=== PATIENT | female | born 1990 | race Caucasian/White ===

== ENCOUNTER 2016-11-01 19:19 | Emergency (ER) | payer MEDICAID, OTHER ==
[2016-11-01] MEDS ORDERED: Metoclopramide IV* 5 MG/ML 2 ML VIAL IV ONE (21:56)
[2016-11-01] MEDS ORDERED: NS 0.9% 1000 ML* 1,000 ML IV ONE (21:56)
[2016-11-01] MEDS ORDERED: diPHENhydraMINE IV* 50 MG/ML 1 ml VIAL (BENADRYL) IV ONE (21:57)
[2016-11-01] MEDS ORDERED: HYDROmorphone INJ* 1 MG/ML CARPUJECT SYRINGE IV ONE (23:32)
[2016-11-02 00:01] VITALS: BP 90/51
--- NOTE | 2016-11-02 11:05 | ED ---
Michelle Dennis Michael, scribed for James Altman MD on 11/01/16 at 2148 . Headache - HPI Summary HPI Summary: 26 y/o female comes to the ED presenting with constant COLE that started 4 days ago. The pt reports that the COLE is throbbing, and it has gradually worsened. The COLE is aggravated with standing up and bright lights. She states Tylenol did not alleviate the pain. The pt also c/o n/v and photophobia for the past 4 days. Her gestational age is 7 weeks, and she is G1-P1-A0. The PMHx is significant for a cholecystectomy. - History Of Current Complaint Chief Complaint: EDHeadache Stated Complaint: HEADACHES/7WKS PREG Time Seen by Provider: 11/01/16 21:42 Hx Obtained From: Patient, Medical Records Hx Last Menstrual Period: 05/11/16 Onset/Duration: Gradual Onset, Started days ago, Still Present Initially Headache Was: Moderate Currently Pain Is: Moderate Timing: Constant Character: Throbbing Location of Headache: Occipital Aggravating Factor: Position Change - standing up, Bright Lights Allevating Factors: Nothing Associated Signs And Symptoms: Nausea, Vomiting, Other (Noted In Comments) - COLE - Allergies/Home Medications Allergies/Adverse Reactions: Allergies Allergy/AdvReac Type Severity Reaction Status Date / Time Amoxicillin Allergy Hives Verified 07/27/16 14:04 PMH/Surg Hx/FS Hx/Imm Hx Endocrine/Hematology History: Denies: Hx Diabetes, Hx Thyroid Disease Cardiovascular History: Denies: Hx Hypertension Respiratory History: Denies: Hx Asthma, Hx Chronic Obstructive Pulmonary Disease (COPD) GI History: Denies: Hx Ulcer - Surgical History Surgery Procedure, Year, and Place: cholecystectomy - 2009 Infectious Disease History: No Infectious Disease History: Denies: Hx Hepatitis, Hx Human Immunodeficiency Virus (HIV), History Other Infectious Disease, Traveled Outside the [place] in Last 30 Days - Family History Known Family History: Positive: None Family History: pt denies a significant FHx - Social History Occupation: Unemployed Lives: Alone Alcohol Use: None Substance Use Type: Reports: None Smoking Status (MU): Current Every Day Smoker Type: Cigarettes Amount Used/How Often: 1 ppd Length of Time of Smoking/Using Tobacco: began at age 12 Have You Smoked in the Last Year: Yes Review of Systems Negative: Fever Positive: Vomiting, Nausea Positive: Headache All Other Systems Reviewed And Are Negative: Yes Physical Exam Triage Information Reviewed: Yes Vital Signs On Initial Exam: Initial Vitals Temp Pulse Resp BP Pulse Ox 97.8 F 96 18 107/67 100 11/01/16 19:22 11/01/16 19:22 11/01/16 19:22 11/01/16 19:22 11/01/16 19:22 Vital Signs Reviewed: Yes Appearance: Positive: Well-Appearing, No Pain Distress Skin: Positive: Warm, Skin Color Reflects Adequate Perfusion, Dry Head/Face: Positive: Normal Head/Face Inspection Eyes: Positive: Normal ENT: Positive: Normal ENT inspection Neck: Positive: Supple, Nontender Respiratory/Lung Sounds: Positive: Clear to Auscultation, Breath Sounds Present Cardiovascular: Positive: RRR Abdomen Description: Positive: Nontender, Soft Bowel Sounds: Positive: Present Musculoskeletal: Positive: Normal Neurological: Positive: Normal Psychiatric: Positive: Normal, Affect/Mood Appropriate Diagnostics - Vital Signs Vital Signs Temp Pulse Resp BP Pulse Ox 11/01/16 19:22 97.8 F 96 18 107/67 100 - Laboratory Lab Statement: Any lab studies that have been ordered have been reviewed, and results considered in the medical decision making process. Headache Course/Dx - Course Course Of Treatment: Gia Meyers presented with the gradual onset 4 days ago of a constant, throbbing occipital COLE accompanied by photophobia and nausea. Two days prior she learned that she is for the second time. She has an 8 year old son. She had no meningeal or neurological signs and her Cole improved with an abreviated COLE cocktail (no toradol) of benadryl, reglan and IV NS. - Diagnoses Provider Diagnoses: Migraine Discharge - Discharge Plan Condition: Stable Disposition: HOME Patient Education Materials: Migraine Headache (ED) [place] [facility] [place] Additional Instructions: You will [place] [facility] within the next 2-3 days. The documentation as recorded by the Michelle griffith Michael accurately reflects the service I personally performed and the decisions made by me, James Altman MD.
== END 2016-11-02 00:13 | disposition home or self-care (01) ==
LOC: ED 19:19
DX: O26.891 Other specified pregnancy related conditions, first trimester (principal); G43.909 Migraine, unspecified, not intractable, without status migrainosus; Z3A.01 Less than 8 weeks gestation of pregnancy; O99.331 Smoking (tobacco) complicating pregnancy, first trimester; Z88.0 Allergy status to penicillin
CPT/HCPCS: 99284; J1200; J2765

== ENCOUNTER → 2017-06-15 07:42 | Emergency (ER) | payer OTHER ==
[2017-06-15 08:03] VITALS: BP 125/76
--- NOTE | 2017-06-15 08:27 | ED ---
Chino Dennis Angela, scribed for Ethan Aguayo MD on 06/15/17 at 0759 . - HPI Summary HPI Summary: This pt is a 27 y/o female, currently 40 weeks , presenting to [facility] c/o constant abd pain since 5:00 AM today. Pt reports her pain is sharp and located on the right side. She notes on her previous she was 1 week over when she gave , and currently on this she is 5 days over. Pt denies vaginal bleeding or spotting, fever, chills, back pain. She was told she was 4 cm dilated yesterday by the die reamer. - History of Current Complaint Chief Complaint: EDOBProblems Stated Complaint: 40+WEEKS PREG/RT ABD PAIN Hx Obtained From: Patient Onset/Duration: Started Hours Ago Timing: Constant Pain Intensity: 9 - out of 10 in severity Location of Pain: Right Side Aggravating Factors: Nothing Alleviating Factors: Nothing Associated Signs and Symptoms: Negative: Back Pain, Fever, Vaginal Bleeding or Discharge - Assessment Hx Now: Yes Hx Hysterectomy: No - Allergies/Home Medications Allergies/Adverse Reactions: Allergies Allergy/AdvReac Type Severity Reaction Status Date / Time Amoxicillin Allergy Hives Verified 06/15/17 07:44 PMH/Surg Hx/FS Hx/Imm Hx Endocrine/Hematology History: Denies: Hx Diabetes, Hx Thyroid Disease Cardiovascular History: Denies: Hx Hypertension Respiratory History: Denies: Hx Asthma, Hx Chronic Obstructive Pulmonary Disease (COPD) GI History: Denies: Hx Ulcer - Surgical History Surgery Procedure, Year, and Place: cholecystectomy - 2010 Infectious Disease History: Denies: Hx Hepatitis, Hx Human Immunodeficiency Virus (HIV), History Other Infectious Disease, Traveled Outside the [place] in Last 30 Days - Family History Known Family History: Positive: None Family History: pt denies a significant FHx - Social History Alcohol Use: None Substance Use Type: Reports: None Smoking Status (MU): Current Every Day Smoker Type: Cigarettes Amount Used/How Often: 1 ppd Length of Time of Smoking/Using Tobacco: began at age 12 Have You Smoked in the Last Year: Yes Review of Systems Negative: Fever, Chills Eyes: Negative ENT: Negative Negative: Epistaxis, Sore Throat Negative: Chest Pain Negative: Shortness Of Breath Positive: Abdominal Pain Genitourinary: Negative Negative: hematuria, other - vaginal bleeding or spotting Negative: Other - back pain Negative: Rash, Bruising Negative: Headache, Weakness Negative: Anxious All Other Systems Reviewed And Are Negative: Yes Physical Exam - Summary Physical Exam Summary: The patient is well-nourished in no acute distress. The skin is warm and dry and skin color reflects adequate perfusion. HEENT: The head is normocephalic and atraumatic. The pupils are equal and reactive. The conjunctivae are clear and anicteric. The teeth are in poor repair. Neck is supple with full range of motion and non-tender. There are no carotid bruits. Respiratory: Chest is non-tender. Lungs are clear to auscultation and breath sounds are symmetrical and equal. Cardiovascular: Hear is regular rate and rhythm. There is no murmur or rub auscultated. There is no peripheral edema and pulses are symmetrical and equal. Abdomen: The pt is gravid. The abdomen is soft and mild tenderness on the right side. Musculoskeletal: There is no back pain noted. Extremities are non-tender with full range of motion. There is good capillary refill. There is no peripheral edema or calf tenderness elicited. There are good distal pulses. Neurological: Patient is alert and oriented to person, place and time. The patient has symmetrical motor strength in all four extremities. Psychiatric: The patient has an appropriate affect and does not exhibit any anxiety or depression. - Physical Exam Triage Information Reviewed: Yes Vital Signs Reviewed: Yes Diagnostics - Vital Signs Vital Signs Temp Pulse Resp BP Pulse Ox 06/15/17 07:44 97.8 F 118 16 122/71 99 - Laboratory Lab Statement: Any lab studies that have been ordered have been reviewed, and results considered in the medical decision making process. Course/Dx - Course Course Of Treatment: This pt is a 27 y/o female, currently 40 weeks , [place] [facility] [place]/o constant abd pain since 5:00 AM today. Pt reports her pain is sharp and located on the right side. She notes on her previous she was 1 week over when she gave , and currently on this she is 5 days over. Pt denies vaginal bleeding or spotting, fever , chills, back pain. She was told she was 4 cm dilated yesterday by the die reamer. We will discharge the pt and send to the [facility] [place] [facility]. Santo (from [facility]) is currently in the OR, we will send the pt there. - Differential Diagnosis/HQI/PQRI: Late - Diagnoses Provider Diagnoses: , Abdominal pain Discharge - Discharge Plan Condition: Stable Disposition: HOME Referrals: No Primary Care Phys,NOPCP [Primary Care Provider] - Additional Instructions: Please go to Maternal Health Unit to be further evaluated. The documentation as recorded by the Chino griffith Angela accurately reflects the service I personally performed and the decisions made by , Ethan Aguayo MD.
== END | disposition home or self-care (01) ==
LOC: ED 07:42
DX: R10.9 Unspecified abdominal pain (principal); Z34.93 Encounter for supervision of normal pregnancy, unspecified, third trimester; F17.210 Nicotine dependence, cigarettes, uncomplicated
CPT/HCPCS: 99282

== ENCOUNTER 2017-06-17 07:48 | Inpatient (IN) | payer OTHER ==
[~2017-06-17 07:48] MED LIST: Oxytocin in LR* 20 UNITS/1,000 ML BAG IVPB SCH
[2017-06-17] MEDS ORDERED: Oxytocin in LR* 20 UNITS/1,000 ML BAG IVPB ONE (07:59)
[2017-06-17] MEDS ORDERED: Buffered Lidocaine 0.9% SYRIN* 5 ML/SYR SYRINGE ONE (08:01)
[2017-06-17 08:30] LABS: Hematocrit 32 % (35-47); Hemoglobin 10.5 g/dl (12.0-16.0); Mean Corpuscular HGB Conc 33 g/dl (31-36); Mean Corpuscular Hemoglobin 29 pg (27-31); Mean Corpuscular Volume 88 fL (80-97); Mean Platelet Volume 8 um3 (7.4-10.4); Red Blood Count 3.58 10^6/ul (4.0-5.4); Red Cell Distribution Width 16 % (10.5-15); White Blood Count 20.6 10^3/ul (3.5-10.8)
[2017-06-17 08:31] LABS: Add Diff/Slide Review? Slide Review Added; Comments Flag Yes
[2017-06-17] MEDS ORDERED: fentaNYL* 50 MCG/ML 2 ML VIAL (100 MCG VIAL) ONE (10:02)
[2017-06-17] MEDS ORDERED: OBEPIDURAL* 250 ML ONE (10:02)
[2017-06-17] MEDS ORDERED: Sodium Citrate/Citric Acid* 15 ML UDC PO PRN (10:42)
[2017-06-17] MEDS ORDERED: Famotidine TAB* 20 MG PO PRN (10:42)
[2017-06-17] MEDS ORDERED: Phenylephrine IV* 40 MCG/ML 10 ML SYRINGE IV PUSH PRN ×2 (10:42)
[2017-06-17] MEDS ORDERED: OBEPIDURAL* 250 ML EPIDURAL SCH (11:00)
[2017-06-17] MEDS ORDERED: RHO D Immune Globulin (HUMAN)* 300 MCG = 1,500 I.U. INJ IM ONE (16:51)
[2017-06-17] MEDS ORDERED: Glycerin ADULT SUPP PR PRN (16:51)
[2017-06-17] MEDS ORDERED: Acetaminophen TAB* 325 MG PO PRN (16:51)
[2017-06-17] MEDS ORDERED: Dibucaine 1% 28.35 GM TUBE PR PRN (16:51)
[2017-06-17] MEDS ORDERED: Measles, Mumps,Rubella VACC* 0.5 ML/VIAL SUBCUT ONE (16:51)
[2017-06-17] MEDS ORDERED: Witch Hazel PAD* JAR TOPICAL PRN (16:51)
[2017-06-17] MEDS ORDERED: Oxytocin in LR* 20 UNITS/1,000 ML BAG IVPB SCH (16:53)
[2017-06-17] MEDS: Ibuprofen TAB* 600 MG PO PRN (17:17)
[2017-06-17] MEDS: Nicotine PATCH 7 MG/24 HR* PATCH TRANSDERM SCH (17:37)
[2017-06-17] MEDS: Docusate CAP* 100 MG PO SCH (20:12)
[2017-06-17] MEDS: Nicotine Patch Removal NOTE PATCH OFF SCH (21:55)
[2017-06-18] MEDS: Ibuprofen TAB* 600 MG PO PRN ×2 (03:59→19:45)
[2017-06-18] MEDS: Nicotine PATCH 7 MG/24 HR* PATCH TRANSDERM SCH (08:12)
[2017-06-18 08:37] LABS: Hematocrit 27 % (35-47); Hemoglobin 9.1 g/dl (12.0-16.0); Mean Corpuscular HGB Conc 33 g/dl (31-36); Mean Corpuscular Hemoglobin 30 pg (27-31); Mean Corpuscular Volume 89 fL (80-97); Mean Platelet Volume 8 um3 (7.4-10.4); Red Blood Count 3.05 10^6/ul (4.0-5.4); Red Cell Distribution Width 16 % (10.5-15); White Blood Count 17.9 10^3/ul (3.5-10.8)
[2017-06-18] MEDS: Docusate CAP* 100 MG PO SCH ×3 (09:02→19:45)
[2017-06-18] MEDS: Ferrous Gluconate TAB* 324 MG TAB PO SCH ×2 (09:49→19:45)
[2017-06-18] MEDS: Nicotine Patch Removal NOTE PATCH OFF SCH (20:43)
[2017-06-18] MEDS ORDERED: Famotidine TAB* 20 MG PO PRN (23:26)
[2017-06-18] MEDS ORDERED: Sodium Citrate/Citric Acid* 15 ML UDC PO PRN (23:26)
[2017-06-18] MEDS ORDERED: Phenylephrine IV* 40 MCG/ML 10 ML SYRINGE IV PUSH PRN ×2 (23:26)
[2017-06-18] MEDS ORDERED: EPHEDrine (Pressors)* 50 MG/ML VIAL IV PUSH PRN (23:26)
[2017-06-18] MEDS ORDERED: OBEPIDURAL* 250 ML EPIDURAL SCH (23:45)
[2017-06-19] MEDS: Ibuprofen TAB* 600 MG PO PRN (08:25)
[2017-06-19] MEDS: Docusate CAP* 100 MG PO SCH (08:25)
[2017-06-19] MEDS: Nicotine PATCH 7 MG/24 HR* PATCH TRANSDERM SCH (08:26)
[2017-06-19] MEDS: Ferrous Gluconate TAB* 324 MG TAB PO SCH (08:30)
[2017-06-19 09:48] VITALS: BP 94/47
== END 2017-06-19 10:28 | disposition home or self-care (01) | DRG 560 ==
LOC: MCHOBOUT 07:48 → MCHOB 08:21
PROVIDERS: ADMIT Midwife; ATTEND Midwife
PROC: 10E0XZZ Delivery of Products of Conception, External Approach (ICD-10-PCS; principal; 2017-06-17)
PROC: 3E033VJ Introduction of Other Hormone into Peripheral Vein, Percutaneous Approach (ICD-10-PCS; 2017-06-17)
PROC: 10907ZC Drainage of Amniotic Fluid, Therapeutic from Products of Conception, Via Natural or Artificial Opening (ICD-10-PCS; 2017-06-17)
PROC: 0HQ9XZZ Repair Perineum Skin, External Approach (ICD-10-PCS; 2017-06-17)
DX: O48.0 Post-term pregnancy (principal); D64.9 Anemia, unspecified; O70.0 First degree perineal laceration during delivery; O99.334 Smoking (tobacco) complicating childbirth; F17.210 Nicotine dependence, cigarettes, uncomplicated; O90.81 Anemia of the puerperium; Z3A.41 41 weeks gestation of pregnancy; Z37.0 Single live birth
CPT/HCPCS: 36415; 85025; 85027; 85461; 86850; 86900; 86901; 90707; A9270-GY; J2790; J3010

== ENCOUNTER 2022-03-30 11:35 | Inpatient (IN) ==
[2022-03-30] MEDS ORDERED: Nicotine PATCH 14 MG/24 HR PATCH TRANSDERM SCH (13:00)
[2022-03-30] MEDS ORDERED: Oxytocin in LR 20 UNITS/1,000 ML BAG IVPB SCH (13:00)
[2022-03-30] MEDS ORDERED: Lactated Ringers 1000 ml BAG 1,000 ML IV SCH ×3 (13:00→20:00)
[2022-03-30 13:24] LABS: ABS Eosinophils 0.1 10^3/ul (0-0.6); ABS Lymphocytes 2.3 10^3/ul (1.0-4.8); ABS Monocytes 0.5 10^3/ul (0-0.8); Eosinophil % 0.8 %; Hematocrit 31 % (35-47); Hemoglobin 10.2 g/dL (12.0-16.0); Lymphocyte % 17.9 %; Mean Corpuscular HGB Conc 33 g/dL (31-36); Mean Corpuscular Hemoglobin 30 pg (27-31); Mean Corpuscular Volume 89 fL (80-97); Mean Platelet Volume 7.5 fL (7.4-10.4); Nucleated Red Blood Cells % 0.1; Platelet Count 213 10^3/uL (150-450); Red Blood Count 3.45 10^6 /uL (3.70-4.87); Red Cell Distribution Width 18 % (10-15)
[2022-03-30 13:53] LABS: Urine Benzodiazepine Screen None Detected (None Detect); Urine Cannabinoids Screen Presumptive Positive (None Detect); Urine Opiates Screen None Detected (None Detect)
[2022-03-30] MEDS ORDERED: fentaNYL 100 mcg/2 ml 50 MCG/ML VIAL ONE (15:11)
[2022-03-30] MEDS ORDERED: OBEPIDURAL (200 ML) 200 ML EPIDURAL ONE (15:22)
[2022-03-30] MEDS ORDERED: Lidocaine 1.5% EPI 1:200,000 30 ML SDV ONE (15:22)
[2022-03-30] MEDS ORDERED: Lactated Ringers 1000 ml BAG 1,000 ML IV ONE (15:59)
[2022-03-30] MEDS ORDERED: Phenylephrine 40 mcg/mL 10mL (400mcg) SYRINGE IV PUSH PRN ×2 (15:59)
[2022-03-30] MEDS ORDERED: Sodium Citrate/Citric Acid LIQ 15 ML UDC PO PRN (15:59)
[2022-03-30] MEDS ORDERED: OBEPIDURAL (200 ML) 200 ML EPIDURAL SCH (16:00)
[2022-03-30 16:48] LABS: Urine Appearance Clear; Urine Bilirubin Negative (Negative); Urine Blood 2+ (Negative); Urine Color Yellow; Urine Glucose Negative (Negative); Urine Ketones Negative (Negative); Urine Nitrite Negative (Negative); Urine Protein Negative (Negative); Urine Specific Gravity 1.006 (1.002-1.030); Urine Urobilinogen Negative (Negative)
[2022-03-30 16:52] LABS: Urine Bacteria Absent (Absent); Urine Red Blood Cell Trace(0-2/hpf) (Absent); Urine White Blood Cell Trace(0-5/hpf) (Absent)
[2022-03-30] MEDS: Oxytocin in LR 20 UNITS/1,000 ML BAG IVPB SCH (19:40)
[2022-03-30] MEDS ORDERED: Dibucaine 1% OINT 28.35 GM TUBE PR PRN (19:57)
[2022-03-30] MEDS ORDERED: Measles, Mumps,Rubella VACC 0.5 ML/VIAL SUBCUT ONE (19:57)
[2022-03-30] MEDS ORDERED: Witch Hazel PAD JAR TOPICAL PRN (19:57)
[2022-03-30] MEDS ORDERED: RHO D Immune Globulin (HUMAN) 300 MCG = 1,500 I.U. INJ IM PRN (19:57)
[2022-03-30] MEDS: Nicotine Lozenge mini 4 MG LOZNG.MINI MT PRN (22:42)
[2022-03-31] MEDS: Oxytocin in LR 20 UNITS/1,000 ML BAG IVPB SCH (01:14)
[2022-03-31] MEDS: Nicotine Lozenge mini 4 MG LOZNG.MINI MT PRN (05:25)
[2022-03-31 06:12] LABS: ABS Basophils 0.1 10^3/ul (0-0.2); ABS Eosinophils 0.1 10^3/ul (0-0.6); ABS Lymphocytes 2.5 10^3/ul (1.0-4.8); ABS Monocytes 0.5 10^3/ul (0-0.8); Hematocrit 27 % (35-47); Hemoglobin 8.8 g/dL (12.0-16.0); Lymphocyte % 18.6 %; Mean Corpuscular HGB Conc 33 g/dL (31-36); Mean Corpuscular Hemoglobin 29 pg (27-31); Mean Corpuscular Volume 88 fL (80-97); Mean Platelet Volume 7.5 fL (7.4-10.4); Platelet Count 177 10^3/uL (150-450); Red Blood Count 3.06 10^6 /uL (3.70-4.87); Red Cell Distribution Width 17 % (10-15); White Blood Count 13.2 10^3/uL (3.5-10.8)
[2022-03-31 07:58] VITALS: BP 103/67
== END 2022-03-31 11:25 | disposition home or self-care (01) | DRG 560 ==
LOC: MCHOBOUT 11:35 → MCHOB 12:06
PROVIDERS: ADMIT Midwife; ATTEND Midwife